=== PATIENT | male | born 1990 | race Caucasian/White ===

== ENCOUNTER 2020-04-21 13:33 | Emergency (ER) | payer OTHER, SELFPAY ==
[2020-04-21 13:46] VITALS: BP 143/81; PULSE 71; RESP 16; TEMP 36.6; O2SAT 100
--- NOTE | 2020-04-21 13:52 | ED.EAR ---
HPI - Ear Problem General Chief complaint: Ear Stated complaint: ear pain/nausea Time Seen by Provider: 04/21/20 13:52 Source: patient and RN notes reviewed Mode of arrival: ambulatory Limitations: no limitations History of Present Illness HPI Narrative: 29 year old male accompanied by with complaints of left ear pain since Friday which started as feeling of pressure to his left ear. He states that he started having feelings of dizziness today.Patient states that he had a lot of sinus pressure last week and he has been having some yellowish drainage from his nose. Patient states that he did take some Sudafed one evening but it didn't seem to help.Patient denies any known fevers, chills or sweats, no cough or any sore throat. MD Complaint: ear pain and other (sinus congestion) Location: left ear Duration: constant Severity: moderate Relieving factors: nothing Exacerbating factors: position of head Context: Reports other (sinus congestion and drainage, ethmoid sinus pressure) Discharge from ear: Reports no Associated symptoms ear: rhinorrhea Treatment prior to arrival: other (sudafed) Related Data Home Medications Medication Instructions Recorded Confirmed polyethylene glycol 3350 [Miralax] 17 g PO DAILY 04/21/20 04/21/20 Allergies Allergy/AdvReac Type Severity Reaction Status Date / Time No Known Drug Allergies Allergy Unknown none Verified 04/21/20 13:48 Review of Systems Review of Systems: Narrative: CONSTITUTIONAL: Denies fever, chills, or sweats. EYES: Denies visual changes, redness, or discharge. ENT: Positive rhinorrhea, congestion,no sore throat,positive left otalgia, sinus pressure. CARDIOVASCULAR: Denies chest pain, palpitations, or edema. RESPIRATORY: Denies cough or dyspnea. GASTROINTESTINAL: Denies abdominal pain, nausea, vomiting, or diarrhea. GENITOURINARY: Denies dysuria or hematuria. SKIN: Denies rash or itching. MUSCULOSKELETAL: Denies back pain, joint pain, or myalgia. NEUROLOGIC: Denies headache, numbness, or weakness. PSYCHIATRIC: Denies anxiety or depression. All systems reviewed & are unremarkable except as noted in HPI and below PMFSH Past Medical History Medical History (Updated 04/21/20 @ 14:40 by Lilly Sierra NP) Constipation GERD (gastroesophageal reflux disease) History of sinus problem Sleep apnea Social History Social History (Updated 04/21/20 @ 14:40 by Lilly Sierra NP) Smoking status: Never smoker Alcohol intake: current Living arrangements: with family Gender identity (if verbalized by the patient): Male Comments At time of signature, agree with nursing past medical, surgical, social history. There is no relevant family history pertinent to the presenting complaint Exam Narrative: Exam Narrative: GENERAL: Well-appearing, well-nourished, and in no acute distress. HEAD: Normocephalic, atraumatic. EYES: PERRLA and EOMI.no nystagmus ENT: Nares red with turbinates swollen, yellow tinged rhinorrhea no epistaxis. Mucous membranes moist.Tm normal right ear with good light reflex, left ear TM red and bulging no drainage from ear, throat light red with no exudates or tonsil swelling. NECK: Supple.no lymphadenopathy Respiratory: lungs clear to auscultation No respiratory distress. HEART: Regular rate and rhythm. No murmur heard. Normal peripheral pulses. ABDOMEN: Soft, nontender, nondistended, normal active bowel sounds. EXTREMITIES: Normal range of motion. No edema. SKIN: Warm, dry, no rash. NEURO: No focal deficits. Alert and oriented x3.gait steady Course Vital Signs Vital signs: Vital Signs Temperature 36.6 C 04/21/20 13:46 Pulse Rate 71 04/21/20 13:46 Respiratory Rate 16 04/21/20 13:46 Blood Pressure 143/81 H 04/21/20 13:46 Pulse Oximetry 100 04/21/20 13:46 Temperature 36.6 C 04/21/20 13:46 Pulse Rate 71 04/21/20 13:46 Respiratory Rate 16 04/21/20 13:46 Blood Pressure 143/81 H 04/21/20 13:46 Pulse Oximetry 100 04/21
== END 2020-04-21 14:25 | disposition home or self-care (01) ==
PROVIDERS: Emergency Provider Registered Nurse
DX: H65.02 Acute serous otitis media, left ear (principal); K21.9 Gastro-esophageal reflux disease without esophagitis; G47.30 Sleep apnea, unspecified
CPT/HCPCS: 99213; G0463

== ENCOUNTER 2021-01-04 14:00 | Outpatient (CLI) | payer OTHER, SELFPAY ==
--- NOTE | ~2021-01-04 | XR_ITS ---
EXAMINATION: XR chest 2V 01/04/2021 14:17 INDICATION: Localized swelling and chest pain PROCEDURE: 2 view chest COMPARISON: 05/27/2011 FINDINGS: The lungs are clear. The cardiomediastinal silhouette is within normal limits. There are no pleural effusions. There is no pneumothorax suspected. IMPRESSION: 1: NO ACUTE CARDIOPULMONARY DISEASE. Reviewed, dictated and finalized at location B.
== END 2021-01-04 14:01 | disposition home or self-care (01) ==
PROVIDERS: PCP Internal Medicine; Visit Provider Nurse Practitioner
DX: R22.2 Localized swelling, mass and lump, trunk (principal)
CPT/HCPCS: 71046

== ENCOUNTER 2021-03-11 12:52 | Emergency (ER) | payer OTHER, SELFPAY ==
[2021-03-11 12:59] VITALS: BP 151/93; PULSE 84; RESP 12; TEMP 37.1; O2SAT 100
--- NOTE | 2021-03-11 12:59 | ED.URI ---
HPI - URI/Sore Throat General Chief Complaint: Upper Respiratory Infection Stated Complaint: SINUS CONGESTION/EARACHE/DIZZY Time Seen by Provider: 03/11/21 12:59 Source: patient and RN notes reviewed History of Present Illness HPI Narrative: Patient is a 30-year-old male who presents the urgent care with complaints of bilateral earache, worse on the left, dizziness and sinus congestion. Patient states it started approximately a week and a half ago and he does typically get chronic sinus infections . Patient has been taking his daily allergy medication as well as Sudafed and Benadryl without much relief. Denies of any known Covid exposure and does have the Covid vaccine. Denies of any fever, chills, nausea, vomiting, cough. Denies any shortness of breath. No other acute complaints. No acute distress noted. Patient aware of the plan of care. Some parts of this dictation were generated by voice recognition software and may contain typographical and/or grammatical inaccuracies. Related Data Home Medications Medication Instructions Recorded Confirmed Zyrtec 10 mg PO DAILY 03/11/21 03/11/21 Allergies Allergy/AdvReac Type Severity Reaction Status Date / Time No Known Drug Allergies Allergy Unknown none Verified 03/11/21 13:00 Review of Systems Review of Systems: Narrative: CONSTITUTIONAL: Denies fever, chills, or sweats. EYES: Denies visual changes, redness, or discharge. ENT: Reports of sinus congestion, bilateral otalgia CARDIOVASCULAR: Denies chest pain, palpitations, or edema. RESPIRATORY: Denies cough or dyspnea. GASTROINTESTINAL: Denies abdominal pain, nausea, vomiting, or diarrhea. GENITOURINARY: Denies dysuria or hematuria. SKIN: Denies rash or itching. MUSCULOSKELETAL: Denies back pain, joint pain, or myalgia. NEUROLOGIC: Denies headache, numbness, or weakness. All other systems reviewed are negative, except as documented in HPI. [facility] Past Medical History Medical History (Updated 03/11/21 @ 13:13 by MORE Ron) Constipation GERD (gastroesophageal reflux disease) History of sinus problem Sleep apnea Social History Social History (Updated 07/21/20 @ 10:56 by Luz Maxwell CMA) Smoking status: Former smoker Alcohol intake: current Gender identity (if verbalized by the patient): Male Comments At the time of my signature, I reviewed and agree with the nursing past medical, surgical, social, and family history. There is no relevant family history pertinent to the patient complaint. Exam Narrative: Exam Narrative: GENERAL: This is a well-nourished, well-developed patient, in no apparent distress. HEAD: normocephalic, atraumatic. EYES: PERRL. Sclera clear/white. Vision is grossly intact. EARS: External ears normal, mild erythema to bilateral auditory canals clear and without drainage, TMs normal without perforation. Hearing grossly intact. NOSE: External nose normal with no obvious nasal discharge, nares without redness, no rhinorrhea. THROAT: Mucous membranes moist, posterior pharynx clear. Moderate postnasal drainage NECK: Neck supple, non-tender without lymphadenopathy CARDIOVASCULAR: Regular rate and rhythm without murmurs, gallops, or rubs. RESPIRATORY: Clear to auscultation. Breath sounds equal bilaterally. No wheezes, rales, or rhonchi. SKIN: warm, intact with no suspicious lesions or rash, good texture and turgor. NEURO: awake, alert, and oriented to person, place and time. There were no obvious focal neurologic abnormalities. EXTREMITIES: No clubbing, cyanosis, or edema. Course Vital Signs Vital signs: Vital Signs Temperature 98.7 F 03/11/21 12:59 Pulse Rate 84 03/11/21 12:59 Respiratory Rate 12 03/11/21 12:59 Blood Pressure 151/93 H 03/11/21 12:59 Pulse Oximetry 100 03/11/21 12:59 Temperature 98.7 F 03/11/21 12:59 Pulse Rate 84 03/11/21 12:59 Respiratory Rate 12 03/11/21 12:59 Blood Pressure 151/93 H 03/11/21 12:59 Pulse Oximetry 100
== END 2021-03-11 13:23 | disposition home or self-care (01) ==
PROVIDERS: Emergency Provider Nurse Practitioner Family; PCP Internal Medicine
DX: J32.9 Chronic sinusitis, unspecified (principal); K21.9 Gastro-esophageal reflux disease without esophagitis; G47.30 Sleep apnea, unspecified
CPT/HCPCS: 99213; G0463

== ENCOUNTER → 2021-04-30 06:37 | Outpatient (CLI) | payer OTHER, SELFPAY ==
[2021-05-01 15:39] LABS: SARS-CoV-2 RNA PCR Negative
== END ==
PROVIDERS: PCP Internal Medicine; Visit Provider Clinical Nurse Specialist
DX: R05 Cough (principal); Z20.822 Contact with and (suspected) exposure to COVID-19
CPT/HCPCS: C9803; U0003; U0005

== ENCOUNTER 2022-04-28 11:25 | Emergency (ER) | payer BC, SELFPAY ==
[2022-04-28 11:38] VITALS: BP 147/104; PULSE 98; RESP 16; TEMP 37.7; O2SAT 100
--- NOTE | 2022-04-28 11:38 | ED.URI ---
HPI - URI/Sore Throat General Chief Complaint: Upper Respiratory Infection Stated Complaint: cough,fever,sore throat Time Seen by Provider: 04/28/22 11:38 Source: patient Mode of arrival: ambulatory Limitations: no limitations History of Present Illness HPI Narrative: 31-year-old male presents with complaint of congestion, cough, body aches, fatigue, fever for 3 days. Reports that temperature on first day was 102 Fahrenheit. States that he is blowing out yellow nasal drainage. Positive fatigue. Taking Mucinex D without relief. Is concerned that he has bacterial sinus infection. States that he has severe allergy symptoms at times. Is currently not taking his Melly. Recently traveled. No known COVID exposure. Is COVID vaccinated. All systems reviewed and negative except as noted above. Related Data Allergies Allergy/AdvReac Type Severity Reaction Status Date / Time No Known Drug Allergies Allergy Unknown none Verified 05/07/21 15:01 Review of Systems Review of Systems: CONSTITUTIONAL: Reports fever, chills, or sweats. EYES: Denies visual changes, redness, or discharge. ENT: Reports rhinorrhea, congestion, sore throat, and ear pressure. CARDIOVASCULAR: Denies chest pain, palpitations, or edema. RESPIRATORY: Reports cough. Denies dyspnea. GASTROINTESTINAL: Denies abdominal pain, nausea, vomiting, or diarrhea. GENITOURINARY: Denies dysuria or hematuria. SKIN: Denies rash or itching. MUSCULOSKELETAL: Denies back pain, joint pain, or myalgia. NEUROLOGIC: Denies headache, numbness, or weakness. PSYCHIATRIC: Denies anxiety or depression. All other systems reviewed are negative, except as documented in HPI. [facility] Past Medical History Medical History Constipation GERD (gastroesophageal reflux disease) History of sinus problem Sleep apnea Social History Social History Smoking status: Former smoker Alcohol intake: current Alcohol use details: weekends Gender identity (if verbalized by the patient): Male Exam Narrative: GENERAL: This is a well-nourished, well-developed patient,. Patient is ill-appearing but in no distress. HEAD: normocephalic, atraumatic. EYES: PERRL. Sclera clear/white. Vision is grossly intact. EARS: External ears normal, auditory canals clear and without drainage, mild erythema to bilateral TMs without purulence or perforation. NOSE: External nose normal with purulent nasal drainage, moderate congestion, bilateral maxillary sinus tenderness. Erythema and edema to both nares. THROAT: Mucous membranes moist, erythema to posterior pharynx with postnasal drainage. NECK: Neck supple, non-tender without lymphadenopathy, masses or thyromegaly. CARDIOVASCULAR: Regular rate and rhythm without murmurs, gallops, or rubs. RESPIRATORY: Clear to auscultation. Breath sounds equal bilaterally. No wheezes, rales, or rhonchi. SKIN: warm, Dry, intact with no suspicious lesions or rash, good texture and turgor. NEURO: awake, alert, and oriented to person, place and time. There were no obvious focal neurologic abnormalities. EXTREMITIES: No joint tenderness, effusion, or edema noted. Course Course Level of Care: Express Care Visit Vital Signs Vital signs: Vital Signs Temperature 37.7 C H 04/28/22 11:38 Pulse Rate 98 04/28/22 11:38 Respiratory Rate 16 04/28/22 11:38 Blood Pressure 147/104 H 04/28/22 11:38 Pulse Oximetry 100 04/28/22 11:38 Temperature 37.7 C H 04/28/22 11:38 Pulse Rate 98 04/28/22 11:38 Respiratory Rate 16 04/28/22 11:38 Blood Pressure 147/104 H 04/28/22 11:38 Pulse Oximetry 100 04/28/22 11:38 Reviewed MDM - URI/Sore Throat MDM Narrative Medical decision making narrative: Patient is aware of diagnosis, understands and agrees to treatment plan. Anticipatory guidance given. Patient agrees to follow-up as directed and is aware of reasons to seek ca
== END 2022-04-28 12:14 | disposition home or self-care (01) ==
PROVIDERS: Emergency Provider Nurse Practitioner Family; PCP Internal Medicine
DX: J01.90 Acute sinusitis, unspecified (principal); Z20.822 Contact with and (suspected) exposure to COVID-19; K21.9 Gastro-esophageal reflux disease without esophagitis; G47.30 Sleep apnea, unspecified; Z87.891 Personal history of nicotine dependence
CPT/HCPCS: 87426; 87804; 99213; C9803; G0463

== ENCOUNTER 2022-11-21 10:25 | Outpatient (CLI) | payer BC, SELFPAY ==
[2022-11-21 10:47] LABS: Amylase 71 U/L (30-110); Lipase 65 U/L (23-300)
== END 2022-11-21 10:26 | disposition home or self-care (01) ==
LOC: ANHLAB 10:26
PROVIDERS: PCP Internal Medicine; Visit Provider Nurse Practitioner
DX: R10.11 Right upper quadrant pain (principal)
CPT/HCPCS: 36415; 82150; 83690

== ENCOUNTER 2022-11-21 11:02 | Outpatient (CLI) | payer BC, SELFPAY ==
--- NOTE | ~2022-11-21 | US_ITS ---
EXAMINATION: US abdomen limited DATE: 11/21/2022 12:09 INDICATION: Right upper quadrant pain TECHNIQUE: Multiple grayscale and Doppler ultrasound images of the abdomen were obtained. COMPARISON: 06/06/2011 FINDINGS: The head and body of the pancreas are normal. The pancreatic tail is obscured by bowel gas. The liver demonstrates increased echogenicity, heterogenous echotexture, and decreased through trans mission. No surface nodularity. Normal hepatopetal flow in the main portal vein. The gallbladder is n ormal with no abnormal wall thickening, pericholecystic fluid or stones. The normal common bile duct measures 3 mm. There was no sonographic Segal sign. IMPRESSION: 1. Diffuse hepatic steatosis. Reviewed, dictated and finalized at location A. C AGENT
== END 2022-11-21 11:03 | disposition home or self-care (01) ==
PROVIDERS: PCP Internal Medicine; Visit Provider Nurse Practitioner
DX: R10.11 Right upper quadrant pain (principal); K76.0 Fatty (change of) liver, not elsewhere classified
CPT/HCPCS: 76705

== ENCOUNTER 2023-12-23 08:23 | Outpatient (CLI) | payer BC, SELFPAY ==
[2023-12-23 13:35] LABS: Alanine Aminotransferase 26 U/L (6-50); Albumin Level 4.3 g/dL (3.5-5.1); Alkaline Phosphatase 57 U/L (38-126); Anion Gap 5 mmol/L (8-16); Aspartate Amino Transferase 55 U/L (17-59); Bilirubin,Total 0.7 mg/dL (0.2-1.3); Blood Urea Nitrogen 17 mg/dL (9-20); Calcium 9.4 mg/dL (8.4-10.2); Carbon Dioxide 28 mmol/L (22-30); Chloride 105 mmol/L (98-107); Cholesterol 203 mg/dL (0-200); Estimated Glomerular Filt Rate > 60; Glucose 102 mg/dL (65-110); HDL Direct 38 mg/dL; Potassium 4.3 mmol/L (3.4-5.0); Sodium 138 mmol/L (137-145); Triglycerides 218 mg/dL (<150)
[2023-12-23 13:36] LABS: Basophils Percent Auto 0.4 % (0.2-1.2); Eosinophils Absolute Auto 0.1 K/mm3 (0-0.3); Eosinophils Percent Auto 1.3 % (0-4.4); Hematocrit 46.5 % (42.0-52.0); Hemoglobin 15.3 g/dL (14.0-18.0); Immature Granulocyte Absolute 0.01 K/mm3 (0.00-0.031); Immature Granulocyte Percent A 0.2 % (0-0.5); Lymphocytes Absolute Auto 1.79 K/mm3 (0.9-3.2); Lymphocytes Percent Auto 39.2 % (18.3-44.2); Mean Corpuscular HGB Conc 32.9 g/dl (32-36); Mean Corpuscular Hemoglobin 29.4 pg (26-34); Mean Corpuscular Volume 89.3 fl (80-100); Mean Platelet Volume 10.6 fl (7.4-10.4); Monocytes Absolute Auto 0.3 K/mm3 (0.1-0.6); Monocytes Percent Auto 5.9 % (2.6-8.5); Neutrophils Absolute Auto 2.4 K/mm3 (1.3-6.7); Platelet Count Result 218 k/mm3 (150-375); Red Blood Count 5.21 M/mm3 (4.6-6.20); Red Cell Distribution Width 12.2 % (11.5-14.5); White Blood Count 4.6 K/mm3 (4.5-10.0)
[2023-12-23 13:45] LABS: LDL Cholesterol Direct 128 mg/dL
== END 2023-12-23 08:24 | disposition home or self-care (01) ==
LOC: ANHGOSHLAB 08:25
PROVIDERS: PCP Internal Medicine; Visit Provider Nurse Practitioner
DX: E78.5 Hyperlipidemia, unspecified (principal)
CPT/HCPCS: 36415; 80053; 80061; 85025

== ENCOUNTER 2023-12-29 09:37 | Outpatient (CLI) | payer BC, SELFPAY ==
--- NOTE | ~2023-12-29 | US_ITS ---
US abdomen limited INDICATION: Fatty infiltration of the liver PROCEDURE: Realtime right upper abdominal ultrasound. COMPARISON: No prior studies for comparison. FINDINGS: The pancreas is normal without focal mass or pancreatic ductal dilation. Liver echotexture is normal without focal mass or intrahepatic biliary dilatation. There is normal directional flow i n the portal vein. The gallbladder is normal without stones, gallbladder wall thickening or pericholecystic fluid. Comm on bile duct measures 3 mm. No sonographic Segal's sign. IMPRESSION: 1: Normal limited abdominal ultrasound. Reviewed, dictated and finalized at location B.
== END 2023-12-29 09:38 ==
LOC: GOSHIMG 09:38
PROVIDERS: PCP Internal Medicine; Visit Provider Nurse Practitioner
DX: K76.0 Fatty (change of) liver, not elsewhere classified (principal)
CPT/HCPCS: 76705

== ENCOUNTER 2024-02-27 08:51 | Outpatient (CLI) | payer BC, SELFPAY ==
--- NOTE | ~2024-02-27 | CT_ITS ---
EXAMINATION: CT sinus wo con DATE: 02/27/2024 09:04 INDICATION: Chronic sinusitis for years TECHNIQUE: Computed tomography (CT) of the paranasal sinuses was performed without contrast. Iterativ e reconstruction technique was employed. Exam dose: 434.28 mGy-cm total exam DLP. COMPARISON: None FINDINGS: Minimal rightward bowing of the nasal septum. Prominent asymmetric soft tissue swelling of the right middle and inferior nasal turbinates. Jeniffer bullosa of left middle nasal turbinate. The ostiomeatal units are patent bilaterally. There is an approximately 1.3 cm mucous retention cyst or polyp in the anterior floor of the right ma xillary antrum. The paranasal sinuses otherwise are normally developed and aerated, without mucoperio steal thickening, fluid level or soft tissue mass density. The mastoid air cells are well developed and aerated bilaterally. Middle and inner ear apparatus appear normal. IMPRESSION: Asymmetric prominent soft tissue swelling of the right nasal turbinates Jeniffer bullosa of left middle nasal turbinate 1.3 cm mucous retention cyst or polyp at the anterior floor of the right maxillary antrum Reviewed, dictated and finalized at Location A. Reviewed, dictated and finalized at location B. IMPRESSION: Asymmetric prominent soft tissue swelling of the right nasal turbi nates Jeniffer bullosa of left middle nasal turbinate 1.3 cm mucous retention cyst or polyp at the anterior floor of the right maxill cassie antrum
== END 2024-02-27 08:52 ==
LOC: GOSHIMG 08:52
PROVIDERS: PCP Internal Medicine; Visit Provider Otolaryngology
DX: J32.9 Chronic sinusitis, unspecified (principal); M79.89 Other specified soft tissue disorders; J34.89 Other specified disorders of nose and nasal sinuses
CPT/HCPCS: 70486

== ENCOUNTER 2024-03-10 09:49 | Outpatient (CLI) | payer BC, SELFPAY ==
--- NOTE | 2024-03-10 11:00 | NEURO_ITS ---
Impression: # Complains of weakness in right upper extremity. Non-diabetic. # Normal Nerve Conduction Study; No Carpal Tunnel Syndrome or ulnar neuropathy. # Normal needle/EMG exam in distal and proximal muscles. # Clinical correlation recommended. Nerve Conduction Studies Anti Sensory Summary Table Stim Site NR Peak (ms) P-T Amp (?V) Site1 Site2 Delta-P (ms) Dist (cm) Cedric (m/s) Left Median Anti Sensory (2-3nd Digit) Wrist 2.7 85.1 Wrist 2-3nd Digit 2.7 14.0 52 Wrist 2.7 81.6 Wrist 2-3nd Digit 2.7 14.0 52 Right Median Anti Sensory (2-3nd Digit) Wrist 2.8 76.9 Wrist 2-3nd Digit 2.8 14.0 50 Wrist 2.8 64.1 Wrist 2-3nd Digit 2.8 14.0 50 Left Radial Anti Sensory (Base 1st Digit) Wrist 1.9 32.0 Wrist Base 1st Digit 1.9 0.0 Right Radial Anti Sensory (Base 1st Digit) Wrist 2.3 20.2 Wrist Base 1st Digit 2.3 0.0 Left Ulnar Anti Sensory (5th Digit) Wrist 2.9 71.4 Wrist 5th Digit 2.9 14.0 48 Right Ulnar Anti Sensory (5th Digit) Wrist 2.7 59.1 Wrist 5th Digit 2.7 14.0 52 Motor Summary Table Stim Site NR Onset (ms) O-P Amp (mV) Site1 Site2 Delta-0 (ms) Dist (cm) Cedric (m/s) Left Median Motor (Abd Poll Brev) Wrist 3.0 3.3 Elbow Wrist 5.7 34.0 60 Elbow 8.7 2.1 Right Median Motor (Abd Poll Brev) Wrist 3.4 2.8 Elbow Wrist 5.2 31.0 60 Elbow 8.6 7.8 Left Ulnar Motor (Abd Dig Minimi) Wrist 2.5 10.0 A Elbow Wrist 5.7 33.0 58 A Elbow 8.2 8.5 Right Ulnar Motor (Abd Dig Minimi) Wrist 2.5 7.4 A Elbow Wrist 5.6 32.0 57 A Elbow 8.1 7.4 F Wave Studies NR F-Lat (ms) L-R F-Lat (ms) Left Median (Mrkrs) (Abd Poll Brev) 28.57 0.73 Right Median (Mrkrs) (Abd Poll Brev) 29.30 0.73 Left Ulnar (Mrkrs) (Abd Dig Min) 28.59 0.08 Right Ulnar (Mrkrs) (Abd Dig Min) 28.67 0.08 EMG Side Muscle Nerve Root Ins Act Fibs Amp Dur Recrt Comment Right 1stDorInt Ulnar C8-T1 Nml Nml Nml Nml Nml Right Ext Indicis Radial (Post Int) C7-8 Nml Nml Nml Nml Nml Right Ext Digitorum Radial (Post Int) C7-8 Nml Nml Nml Nml Nml Right BrachioRad Radial C5-6 Nml Nml Nml Nml Nml Right PronatorTeres Median C6-7 Nml Nml Nml Nml Nml Right Abd Poll Brev Median C8-T1 Nml Nml Nml Nml Nml Right ABD Dig Min Ulnar C8-T1 Nml Nml Nml Nml Nml Left 1stDorInt Ulnar C8-T1 Nml Nml Nml Nml Nml Left Ext Indicis Radial (Post Int) C7-8 Nml Nml Nml Nml Nml Left Ext Digitorum Radial (Post Int) C7-8 Nml Nml Nml Nml Nml Left BrachioRad Radial C5-6 Nml Nml Nml Nml Nml Left PronatorTeres Median C6-7 Nml Nml Nml Nml Nml Left Abd Poll Brev Median C8-T1 Nml Nml Nml Nml Nml Left ABD Dig Min Ulnar C8-T1 Nml Nml Nml Nml Nml Right Biceps Musculocut C5-6 Nml Nml Nml Nml Nml Left Biceps Musculocut C5-6 Nml Nml Nml Nml Nml MTDD
== END 2024-03-10 09:50 | disposition home or self-care (01) ==
LOC: ANHNEURO 09:50
PROVIDERS: PCP Internal Medicine; Visit Provider Nurse Practitioner
DX: R20.0 Anesthesia of skin (principal); R20.2 Paresthesia of skin
CPT/HCPCS: 95886; 95911

== ENCOUNTER 2024-03-10 14:22 | Outpatient (CLI) | payer BC, SELFPAY ==
--- NOTE | ~2024-03-10 | XR_ITS ---
[id number] 03/10/2024 14:44 Indication: Neck pain Procedure: 3 views cervical spine Comparison: No prior studies for comparison. Findings: Straightening of cervical lordosis. Vertebral body heights are maintained. No prevertebral soft tissue swelling. No fracture or traumatic malalignment. Odontoid process is normal. Impression: 1: No acute abnormality of the cervical spine. Reviewed, dictated and finalized at location B. Impression: 1: No acute abnormality of the cervical spine.
== END 2024-03-10 14:23 ==
PROVIDERS: PCP Internal Medicine; Visit Provider Clinical Nurse Specialist
DX: M54.2 Cervicalgia (principal)
CPT/HCPCS: 72040

== ENCOUNTER 2024-05-03 14:15 | Outpatient (RCR) | payer BC, SELFPAY ==
--- NOTE | 2024-04-02 14:45 | OTOPEVAL1 ---
Assessment and note entered by Ihsan Farah, STEPHANIE/Stacy, CHT Evaluation Information Assessment Status Evaluation Diagnosis Anesthesia of skin, Paresthesia of skin Subjective Information Patient reports experiencing symptoms ~6 weeks ago when working in the garden. He reports intermittent elbow and wrist sensitivity, paresthesia, and pain. He reports difficulties with being able to write, lift objects, type, etc. Finds that fine motor activities seem more difficult. He has been wearing a wrist brace during the day on and off. He has been wearing an elbow extension brace at night. He reports the pain has reduced since he has been wearing the braces. Assessment OT Clinical Summary Patient referred to OT with (R) UE paresthesia. Upper limb tension tests positive for the median and ulnar nerves. He could hardly tolerate ulnar nerve tensioning. He has been wearing a wrist immobilizer and elbow extension immobilizer at night and this has provided some relief, however he continues to experience pain, paresthesia, and weakness that limits functional use. Skilled OT indicated to maximize functional use and strength of the right UE. Plan of Care Interventions Therapeutic Exercise,Manual Therapy,Hot Pack/Cold Pack,Paraffin OT Services Indicated Yes Treatment Frequency and 1x/week for 5 visits Duration These treatments will address the objective and functional deficits as defined above. The patient will be advanced safely and appropriately in order for the patient to progress towards his/her prior level of function. Additional exercises will be introduced and as well as a comprehensive home exercise program upon discharge, if needed, ?to ensure carryover of functional gains achieved in the clinic. This treatment plan has been reviewed and agreement upon by the patient.
--- NOTE | 2024-04-02 14:45 | OPREHPOC ---
Outpatient Therapy Plan of Care This is a Multidisciplinary Plan of Care that may contain components documented by all disciplines (PT, OT, and ST.) OT Problem 1 OT Problem #1 Knowledge Deficit OT Goal 1 Goal 1. Patient to be independent with instructed materials. Target Visit 5 OT Problem 2 OT Problem #2 Impaired Flexibility OT Goal 1 Goal 1. Patient to be able to complete ULTT for the median and ulnar nerves without pain or paresthesia. Target Visit 5 OT Problem 3 OT Problem #3 Impaired Strength OT Goal 1 Goal 1. Increase (R) shoulder strength to 4+/5 2. Increase (R) wrist strength to 4+/5 3. Increase (R) compliance assistant strength by 5 lbs. Target Visit 5
--- NOTE | 2024-05-03 14:57 | OTOPDC ---
Assessment and note entered by Ihsan Farah, STEPHANIE/Stacy, CHT Evaluation Information Diagnosis Anesthesia of skin, Paresthesia of skin Subjective Information Patient reports excellent progress since the start of care. He reports he is no longer experiencing pain. He states the last time he experienced any pain was about 2 weeks. He reports no longer experiencing any functional limitations with writing, typing, or lifting. No longer reporting difficulty with fine motor activities. He continues to wear the wrist and elbow braces at night. Reported Pain Level Pain Score 0: Self Report Assessment OT Clinical Summary Patient referred to OT with (R) UE paresthesia. OT has been focusing on nerve glides, stretching, strengthening, and IASTM. He has made excellent progress. No longer experiencing pain or paresthesia. He was able to complete upper limb tension tests for the median and ulnar nerves without a positive result. He has progressed to being able to return to strengthening without limitations. No further skilled OT indicated at this time. Plan of Care OT Services Indicated No
== END 2024-05-04 09:38 | disposition home or self-care (01) ==
LOC: ANHOT 14:15
PROVIDERS: PCP Internal Medicine; Visit Provider Clinical Nurse Specialist
DX: R20.0 Anesthesia of skin (principal); R20.2 Paresthesia of skin
CPT/HCPCS: 97018; 97110; 97140; 97166

== ENCOUNTER 2025-06-03 09:32 | Outpatient (CLI) | payer BC, SELFPAY ==
--- NOTE | ~2025-06-03 | US_ITS ---
US right upper quadrant INDICATION: Right upper quadrant pain PROCEDURE: Realtime right upper abdominal ultrasound. COMPARISON: No prior studies for comparison. FINDINGS: The pancreas is normal without focal mass or pancreatic ductal dilation. Liver echotexture is increased, consistent with fatty infiltration. There is normal directional flow in the portal vein. The gallbladder is normal without stones, gallbladder wall thickening or pericholecystic fluid. Common bile duct measures 4 mm. No sonographic Segal's sign. IMPRESSION: 1: Fatty infiltration of the liver. Reviewed, dictated and finalized at location O.
== END 2025-06-03 09:33 | disposition home or self-care (01) ==
LOC: GOSHIMG 09:33
PROVIDERS: PCP Internal Medicine; Visit Provider Clinical Nurse Specialist
DX: K76.0 Fatty (change of) liver, not elsewhere classified (principal)
CPT/HCPCS: 76705